=== PATIENT | female | born 1940 | race Caucasian/White ===

== ENCOUNTER 2017-03-22 09:30 | Inpatient (IN) | payer OTHER ==
[~2017-03-22] VITALS: Ht 162.6 cm; Wt 59.1 kg
[~2017-03-22 09:30] MED LIST: ALBU0.63 NEB; BENZ200C48 PO; FLUT1AER INH; FLUT9.9S NAS; GUAI200T3 PO; LEVO500T8 PO; LEVO750T26 PO; LINE600T37 PO; LORA10TA62 PO; OMEP-110 PO; PANT40TA5 PO; PRED10TA14 PO; PRED5TAB PO; SIMV40TA3 PO; TIOT18CA INH; TRAM-47 PO; TRAM50TA2 PO; symbicort INH
[2017-03-22] MEDS ORDERED: SODIUM CHLORIDE 0.9% 1,000 ML IV ONE (10:14)
[2017-03-22] MEDS ORDERED: CEFTRIAXONE PMX 1GM/50ML 50 ML IVPB ONE (10:30)
[2017-03-22] MEDS ORDERED: SODIUM CHLORIDE FLUSH 10ML SYR IVF ONE ×2 (10:30→14:00)
[2017-03-22] MEDS ORDERED: SODIUM CHLORIDE 0.9% 1,000ML IVBOLUS ONE ×2 (10:30→12:30)
[2017-03-22] MEDS ORDERED: methylPREDNISolone SOD SUCC 125 MG/2 ML IVP ONE (10:30)
[2017-03-22] MEDS ORDERED: AZITHROMYCIN 500 MG in SODIUM CHLORIDE 0.9% 250 ML IVPB ONE (10:30)
[2017-03-22] MEDS ORDERED: ALBUTEROL/IPRATROPIUM 2.5MG/0.5MG, 3 ML NPPB ONE (10:30)
[2017-03-22] MEDS ORDERED: ALBUTEROL/IPRATROPIUM 2.5MG/0.5MG, 3 ML ONE (10:34)
[2017-03-22 11:15] LABS: HEMATOCRIT 39.3 % (34.6-47.8); HEMOGLOBIN 12.8 g/dL (11.7-16.4); WHITE BLOOD COUNT 7.3 x10^3/uL (3.4-10)
[2017-03-22] MEDS ORDERED: CEFTRIAXONE PMX 1GM/50ML 50 ML ONE (11:15)
[2017-03-22] MEDS ORDERED: methylPREDNISolone SOD SUCC 125 MG/2 ML ONE (11:16)
[2017-03-22 11:20] LABS: BLOOD UREA NITROGEN 12 mg/dL (7-18)
[2017-03-22] MEDS ORDERED: ANORA INH (11:24)
[2017-03-22 11:25] LABS: ASPARTATE AMINO TRANSFERASE 11 U/L (15-37)
[2017-03-22 11:27] LABS: DIFF TOTAL CELLS COUNTED 100 CELL DIFF
[2017-03-22 11:28] LABS: IS PT STATUS REG ER OR PRE ER? YES
[2017-03-22 11:29] LABS: VERIFY COUNTS? YES
[2017-03-22 11:30] LABS: LARGE PLATELETS 1+; POLYCHROMASIA 1+
[2017-03-22] MEDS ORDERED: hydrALAzine 20 MG/ML, 1ML IVPush PRN (14:00)
[2017-03-22] MEDS ORDERED: GUAIFENESIN/DM 200-20MG, 10ML UDC PO PRN (14:00)
[2017-03-22] MEDS ORDERED: POLYETHYLENE GLYCOL 17 GM PACKET PO PRN (14:00)
[2017-03-22] MEDS ORDERED: ONDANSETRON 2MG/ML, 2ML IVPush PRN (14:00)
[2017-03-22] MEDS ORDERED: TRAZODONE 50MG TABLET PO PRN (14:00)
[2017-03-22] MEDS ORDERED: TEMAZEPAM 15 MG CAPSULE PO PRN (14:00)
[2017-03-22] MEDS ORDERED: ONDANSETRON ODT 4 MG PO PRN (14:00)
[2017-03-22] MEDS ORDERED: ACETAMINOPHEN 325 MG TABLET PO PRN (14:00)
[2017-03-22] MEDS ORDERED: BISACODYL 10 MG SUPP PR PRN (14:00)
[2017-03-22] MEDS ORDERED: ENOXAPARIN 40 MG/0.4 ML ONE (14:23)
[2017-03-22] MEDS: ENOXAPARIN 40 MG/0.4 ML SQ SCH (14:24)
[2017-03-22 15:30] VITALS: BP 127/72
[2017-03-22 19:40] VITALS: BP 116/68
[2017-03-22] MEDS: SIMVASTATIN 40 MG TABLET PO SCH (20:15)
[2017-03-22] MEDS: GUAIFENESIN/DM 200-20MG, 10ML UDC PO PRN (20:25)
[2017-03-23 03:37] VITALS: BP 102/63
[2017-03-23] MEDS: GUAIFENESIN/DM 200-20MG, 10ML UDC PO PRN ×2 (03:56→18:24)
[2017-03-23 04:54] LABS: BLOOD UREA NITROGEN 11 mg/dL (7-18); HEMATOCRIT 35.6 % (34.6-47.8); WHITE BLOOD COUNT 4.8 x10^3/uL (3.4-10)
[2017-03-23] MEDS ORDERED: LEVOFLOXACIN/PMX 750MG/150ML 150 ML IV SCH ×2 (06:30→12:00)
[2017-03-23 07:28] VITALS: BP 116/75
[2017-03-23] MEDS: PANTOPROZOLE 40MG TABLET PO SCH (09:43)
[2017-03-23] MEDS ORDERED: ANORA IH SCH (11:30)
[2017-03-23 13:57] VITALS: BP 116/71
[2017-03-23] MEDS: ENOXAPARIN 40 MG/0.4 ML SQ SCH (14:06)
[2017-03-23] MEDS: SIMVASTATIN 40 MG TABLET PO SCH (20:48)
[2017-03-23 20:57] VITALS: BP 124/69
[2017-03-24 02:58] VITALS: BP 125/71
[2017-03-24 06:02] LABS: HEMATOCRIT 36.1 % (34.6-47.8); WHITE BLOOD COUNT 6.2 x10^3/uL (3.4-10)
[2017-03-24] MEDS: GUAIFENESIN/DM 200-20MG, 10ML UDC PO PRN (06:36)
[2017-03-24 06:40] LABS: BLOOD UREA NITROGEN 12 mg/dL (7-18)
[2017-03-24] MEDS ORDERED: ALBUTEROL/IPRATROPIUM 2.5MG/0.5MG, 3 ML ONE (07:06)
[2017-03-24 09:00] VITALS: BP 111/59
[2017-03-24] MEDS: PANTOPROZOLE 40MG TABLET PO SCH (09:00)
[2017-03-24] MEDS ORDERED: ALBUTEROL/IPRATROPIUM 2.5MG/0.5MG, 3 ML NPPB PRN ×2 (09:00)
[2017-03-24] MEDS ORDERED: LEVO750T26 PO (09:04)
[2017-03-24] MEDS ORDERED: METH4TAB2 PO (09:04)
[2017-03-24] MEDS ORDERED: GUAI5SYR PO (09:04)
== END 2017-03-24 10:51 | disposition home or self-care (01) | DRG 190 ==
LOC: ED 12:07 → EDIP 13:40 → 3NW 15:08
PROVIDERS: ADMIT Hospitalist; ATTEND Hospitalist
DX: J44.0 Chronic obstructive pulmonary disease with (acute) lower respiratory infection (principal); J18.9 Pneumonia, unspecified organism; J44.9 Chronic obstructive pulmonary disease, unspecified; K21.9 Gastro-esophageal reflux disease without esophagitis; E78.00 Pure hypercholesterolemia, unspecified; Z90.710 Acquired absence of both cervix and uterus
CPT/HCPCS: 36415; 71010; 80048; 80053; 81003; 83605; 83880; 84145; 84484; 85025; 87040; 93005; 94640; 96361; 96365; 96366; 96368; 96372; 96375; J0456; J0696; J1650; J1956; J7620; J2930; J7030; J7050

== ENCOUNTER → 2017-09-15 | Outpatient (CLI) | payer OTHER ==
[~2017-09-15] MED LIST changes: +ANORA INH; +GUAI5SYR PO; +METH4TAB2 PO
== END ==
LOC: CFH 13:40
PROVIDERS: ATTEND Internal Medicine Critical Care Medicine
DX: J84.10 Pulmonary fibrosis, unspecified (principal); J47.9 Bronchiectasis, uncomplicated
CPT/HCPCS: 71250

== ENCOUNTER 2018-03-06 08:01 | Emergency (ER) | payer OTHER ==
[~2018-03-06] VITALS: Ht 157.5 cm; Wt 60.9 kg
[2018-03-06 08:16] VITALS: BP 127/44
== END 2018-03-06 09:37 | disposition home or self-care (01) ==
LOC: ED 09:20
DX: J44.1 Chronic obstructive pulmonary disease with (acute) exacerbation (principal); K21.9 Gastro-esophageal reflux disease without esophagitis; E78.5 Hyperlipidemia, unspecified; E78.00 Pure hypercholesterolemia, unspecified
CPT/HCPCS: 71046; 99284

== ENCOUNTER 2018-03-11 12:37 | Emergency (ER) | payer OTHER ==
[~2018-03-11] VITALS: Ht 162.6 cm; Wt 59.0 kg
[2018-03-11] MEDS ORDERED: SODIUM CHLORIDE FLUSH 10ML SYR IVF ONE (13:30)
[2018-03-11] MEDS ORDERED: KETOROLAC 30 MG/1 ML IVPush ONE ×2 (13:30→14:00)
[2018-03-11] MEDS ORDERED: methylPREDNISolone SOD SUCC 125 MG/2 ML IVP ONE (13:30)
[2018-03-11] MEDS ORDERED: methylPREDNISolone SOD SUCC 125 MG/2 ML ONE (13:32)
[2018-03-11] MEDS ORDERED: KETOROLAC 30 MG/1 ML ONE (13:32)
[2018-03-11 14:00] LABS: MEAN CORPUSCULAR HEMOGLOBIN 30.2 pg (27.0-34.8); MEAN CORPUSCULAR HGB CONC 33.4 g/dL (32.4-35.8); MEAN CORPUSCULAR VOLUME 90.2 fL (80-100); PLATELET COUNT 132 x10^3/uL (130-400); RED BLOOD COUNT 4.46 x10^6/uL (3.82-5.3); RED CELL DISTRIBUTION WIDTH 13.6 % (9.6-15.2)
[2018-03-11 14:08] LABS: ALANINE AMINOTRANSFERASE 17 U/L (12-78); ALBUMIN 3.2 g/dL (3.4-5.0); ANION GAP 7 mmol/L (5-15); CALCIUM 8.6 mg/dL (8.5-10.1); CHLORIDE 106 mmol/L (98-107); CREATININE 0.77 mg/dL (0.55-1.02)
[2018-03-11 14:12] LABS: ALKALINE PHOSPHATASE 62 U/L (45-117); BILIRUBIN,TOTAL 0.5 mg/dL (0.2-1.0); TOTAL PROTEIN 7.7 g/dL (6.4-8.2); TROPONIN I < 0.015 ng/mL (0.000-0.045)
[2018-03-11 14:28] LABS: MD YES
[2018-03-11] MEDS ORDERED: DILTIAZEM 5 MG/ML, 5ML ONE (14:29)
[2018-03-11 14:32] LABS: <RBC MORPHOLOGY> NORMAL; LYMPH#(MANUAL) 1.89 x10^3/uL (1-3.4); LYMPHS% (MANUAL) 27 % (22-44); MONOS% (MANUAL) 20 % (2-9); SEG#(MANUAL) 3.71 x10^3/uL (1.8-6.8); SEGS% (MANUAL) 53 % (42-75)
[2018-03-11 14:33] LABS: <PLATELET ESTIMATE> ADEQUATE; <PLT MORPHOLOGY> NORMAL PLT MORPH
[2018-03-11] MEDS ORDERED: OMNIPAQUE 350 MG/ML, 100ML BOTTLE ONE (14:48)
[2018-03-11 15:54] VITALS: BP 113/59
== END 2018-03-11 16:05 | disposition home or self-care (01) ==
LOC: ED 15:59
DX: J47.9 Bronchiectasis, uncomplicated (principal)
CPT/HCPCS: 36415; 71275; 80053; 83880; 84484; 85025; 93005; 96374; 96375; 99285; J1885; J2930; Q9967